=== PATIENT | female | born 1955 | race Caucasian/White ===

== ENCOUNTER 2021-03-06 14:26 | Inpatient (IN) ==
[2021-03-06] MEDS ORDERED: VANCOMYCIN/WATER FOR INJ (PEG) 1 GM/200 ML BAG IV ONE (15:31)
[2021-03-06] MEDS ORDERED: cefTRIAXone SODIUM 1,000 MG/100 ML BAG IV ONE (15:32)
--- NOTE | 2021-03-06 15:33 | ERNOTE ---
Lower Extremity HPI - Narrative Date of Service: 03/06/21 - General Lower Extremities Pain: heel: right Time Seen by Provider: 03/06/21 14:45 Source: patient Exam Limitations: no limitations - Immun/Allergies/Home Medications Immunizations: IMMUNIZATION HX Immunizations Up to Date Yes History of Influenza Vaccine No Hx Pneumococcal Vaccination No Allergies/Adverse Reactions: Allergies Allergy/AdvReac Type Severity Reaction Status Date / Time Penicillins Allergy Hives Verified 03/06/21 14:52 Home Medications: HOME MEDICATIONS Insulin Glargine,Hum.rec.anlog [Lantus Solostar] 20 unit SQ DAILY #1 insuln.pen 11/04/20 [Last Taken Unknown] Methimazole [Tapazole] 20 mg PO DAILY #30 tab 11/04/20 [Last Taken Unknown] Propranolol HCl [Inderal LA] 80 mg PO DAILY #30 capsule.sa 11/04/20 [Last Taken Unknown] Warfarin Sodium [Coumadin] 2.5 mg PO DAILY@1700 #30 tab 11/04/20 [Last Taken Unknown] glyBURIDE [Micronase] 2.5 mg PO DAILY #30 11/04/20 [Last Taken Unknown] metFORMIN HCL [Metformin HCl ER] 750 mg PO BID #60 11/04/20 [Last Taken Unknown] Furosemide [Lasix] 40 mg PO BID 03/06/21 [Last Taken Unknown] - History of Present Illness Narrative: Patient is a 66-year-old female known history of insulin-dependent diabetes with complaint of right lower extremity and right heel weeping and ulceration. Patient denies fever or chills. Patient states she has been treating it at home for the last 2 to 3 weeks. Patient complains of pain to the right heel. Patient also complains of weeping lesions to the right leg. Patient has history of insulin-dependent diabetes, atrial fibrillation, and hyperthyroidism. Occurred: other - 3 weeks Method of Injury: Reports: no apparent injury Loss of Consciousness: Reports: no loss of consciousness Modifying Factors - (Improves): Reports: immobilization Modifying Factors - (Worsens): Reports: movement Associated Symptoms: Reports: unable to bear weight Review of Systems - Review of Systems Constitutional: Present: no symptoms reported EYE: Present: no symptoms reported ENT: Present: no symptoms reported Respiratory: Present: no symptoms reported Cardiology: Present: no symptoms reported Gastrointestinal/Abdominal: Present: no symptoms reported Genitourinary: Present: no symptoms reported Musculoskeletal: Present: joint pain Skin: Present: rash, lesions Neurological: Present: no symptoms reported Endocrine: Present: no symptoms reported Hematologic/Lymphatic: Present: no symptoms reported Psych: Present: no symptoms reported Medical History (Last Reviewed 03/06/21 @ 17:24 by Caity Massey MD) Arthritis Diabetes Surgical History: Surgical History (Last Reviewed 03/06/21 @ 17:24 by Caity Massey MD) History of wisdom tooth extraction Hx of section Hx of dilation and curettage Family History: Family History (Last Reviewed 03/06/21 @ 17:24 by Caity Massey MD) Mother Heart disease Father Cancer Prostate CA Other No pertinent family history in first degree relatives Social History: (Last Reviewed 03/06/21 @ 17:24 by Caity Massey MD) Social History: Marital status: Single household members: none current occupational status: employed current occupation: [employer] Highest level of school completed/degree received: Bachelor's degree Service: No Tobacco: Smoking Status: Former smoker Alcohol: alcohol intake: former Substance Use: substance use type: does not use Dietary Habits: caffeine: Yes Physical Exam - Physical Exam General Appearance: Present: wd/wn, alert, no apparent distress Head Exam: Present: normal inspection, no evidence of injury Eye Exam: Normal inspection: bilateral, PERRL: bilateral, EOMI: bilateral Ears, Nose, Throat: Present: normal ENT inspection Neck: Present: normal inspection Respiratory: Present: no respiratory distress, normal breath sounds Cardiovascular/Chest: Present: regular rate, rhythm, no murmur Gastrointestinal/Abdominal: Present: normal bowel sounds, nontender Back Exam: Present: normal inspection, normal range of motion Extremity Exam: Present: other - Marked edematous diffusely to both lower extremities. Foul odor noted from right foot. Patient has large eschar covering the heel of the right foot. Skin Exam: Present: skin rash - Diabetic ulcer changes as noted. Lymphatic Exam: Present: no adenopathy Progress - Results and Orders Patient's Lab Results:: I have reviewed the patient's lab results. - Vital Signs Patient's Vital Signs:: I have reviewed the patient's vital signs. Vital Signs: Vital Signs 03/06/21 14:48 Temperature 37.3 C Pulse Rate 103 H Respiratory Rate 16 Blood Pressure 149/73 O2 Sat by Pulse Oximetry 99 - X-Ray X-Ray #1 X-Ray: foot - Imaging interpreted by radiologist no evidence of osteomyelitis on plain films. - Progress/Reassessment Chief Complaint: Lower Extremity Pain/ Injury Progress:: Unchanged - Wound culture is obtained. Sterile saline dressing applied Plan - Plan Plan: Case is discussed with Dr. Mcclelland. Patient will be admitted and wound care consult obtained. Patient is placed on vancomycin and Rocephin for secondary changes of cellulitis and diabetic ulceration. BNP is also noted to be markedly elevated above 5000 and uncertain of what baseline is for this patient. No respiratory distress is appreciated. Departure Clinical Impression: Diabetic foot ulcer - Departure Disposition: Short Term Hospital Inpatient Condition: Stable Referrals: Israel Rowe DO [Primary Care Provider] -
[2021-03-06 15:57] LABS: Hematocrit 40.3 % (37.0-47.0); Hemoglobin 12.3 gm/dL (12.5-16.0); Mean Cell Volume 84.7 fl (78-100); Mean Corpuscular Hemoglobin 25.8 pg (27-31); Mean Corpuscular Hgb Conc 30.5 g/dl (32-36); Mean Platelet Volume 8.9 fl (8-12.5); Platelet Count 405 K/mm3 (150-450); Red Blood Count 4.76 M/mm3 (4.2-5.4); Red Cell Distribution Width 14.4 % (11.5-14.0); White Blood Count 19.3 K/mm3 (4.0-10.5)
[2021-03-06 16:03] LABS: Total Cells Counted 100
[2021-03-06 16:16] LABS: Albumin * 2.4 gm/dl (3.4-5.0); Anion Gap 10.1 mmol/L (6.8-13.8); BUN/Creatinine Ratio 28.2 (9.0-21.6); Bilirubin, Total 0.4 mg/dL (0.0-1.1); Ca. Corrected For Albumin 9.6 mg/dL (8.4-10.2); Calcium * 8.6 mg/dL (7.9-10.9); Carbon Dioxide 31.5 mmol/L (24-32.6); Potassium 4.6 mmol/L (3.4-4.6); Total Protein 7.8 gm/dL (6.2-8.2)
[2021-03-06 16:54] LABS: Band 1 % (0-2.0); Basophil 1 % (0-1); Eosinophil 4 % (0-3); Lymphocyte 18 % (20-51); Monocyte 3 % (0-9); Neutrophil 73 % (42-75); Neutrophil # 14.1 K/mm3 (1.3-6.0)
[2021-03-06 16:55] LABS: Anisocytosis Trace; Toxic Granulation 2+
--- NOTE | 2021-03-06 16:55 | HP ---
Chief Complaint - Chief Complaint Date of Service: 03/06/21 Time of Service: 15:45 Chief Complaint: Right foot wound History of Present Illness: 66-year-old female with a past medical history of uncontrolled diabetes mellitus, arthritis, hypertension, atrial fibrillation, hyperthyroidism, lower extremity edema presents from home with complaints of a wound on her right foot for the past 3 weeks. She states the wound has been progressively getting worse and is draining clear fluid. She had seen her PCP for the wound but was never placed on antibiotics. She complains of pain in her foot. She states that her blood sugars run in the 200s. She is not sure what her last hemoglobin A1c reading was. In the ER she is found to have mild tachycardia with a heart rate of 103, labs showed a white blood cell count of 19.3. She has been started on vancomycin and ceftriaxone in the ER. MRI of the lower extremity is pending. She is being admitted for evaluation and management of a right lower extremity diabetic ulcer. Medical History (Last Reviewed 03/06/21 @ 17:24 by Caity Massey MD) Arthritis Diabetes Surgical History: Surgical History (Last Reviewed 03/06/21 @ 17:24 by Caity Massey MD) History of wisdom tooth extraction Hx of section Hx of dilation and curettage Family History: Family History (Last Reviewed 03/06/21 @ 17:24 by Caity Massey MD) Mother Heart disease Father Cancer Prostate CA Other No pertinent family history in first degree relatives Social History: (Last Reviewed 03/06/21 @ 17:24 by Caity Massey MD) Social History: Marital status: Single household members: none current occupational status: employed current occupation: [employer] Highest level of school completed/degree received: Bachelor's degree Service: No Tobacco: Smoking Status: Former smoker Alcohol: alcohol intake: former Substance Use: substance use type: does not use Dietary Habits: caffeine: Yes Review Of Systems (GEN) - Review of Systems Generalized/Overall Review: Present: Chills. Absent: Fever Respiratory: Present: Cough. Absent: Shortness of Breath Cardiac: Absent: Chest Pain Abdominal: Absent: Abdominal Pain Musculoskeletal: Present: Joint Pain - Right foot wound and pain Misc: All systems neg except as marked Immunizations: IMMUNIZATION HX Immunizations Up to Date Yes History of Influenza Vaccine No Hx Pneumococcal Vaccination No Allergies/Adverse Reactions: Allergies Allergy/AdvReac Type Severity Reaction Status Date / Time Penicillins Allergy Hives Verified 03/06/21 14:52 Home Medications: HOME MEDICATIONS Insulin Glargine,Hum.rec.anlog [Lantus Solostar] 20 unit SQ DAILY #1 insuln.pen 11/04/20 [Last Taken Unknown] Methimazole [Tapazole] 20 mg PO DAILY #30 tab 11/04/20 [Last Taken Unknown] Propranolol HCl [Inderal LA] 80 mg PO DAILY #30 capsule.sa 11/04/20 [Last Taken Unknown] Warfarin Sodium [Coumadin] 2.5 mg PO DAILY@1700 #30 tab 11/04/20 [Last Taken Unknown] glyBURIDE [Micronase] 2.5 mg PO DAILY #30 11/04/20 [Last Taken Unknown] metFORMIN HCL [Metformin HCl ER] 750 mg PO BID #60 11/04/20 [Last Taken Unknown] Furosemide [Lasix] 40 mg PO BID 03/06/21 [Last Taken Unknown] Exam - Exam Vital Signs: Vital Signs - Last Taken Temp 37.3 C 03/06/21 14:48 Pulse 103 H 03/06/21 14:48 Resp 16 03/06/21 14:48 BP 149/73 03/06/21 14:48 Pulse Ox 99 03/06/21 14:48 Constitutional: Present: Alert, Cooperative, Well developed, Well nourished, No distress, Elderly ENT Exam: Present: hearing grossly normal, moist mucous membranes Eye Exam: bilateral eye: normal inspection, PERRL, EOMI Neck: Present: supple. Absent: lymphadenopathy (R), lymphadenopathy (L) Back Exam: Present: normal inspection, no CVA tenderness, no vertebral tenderness Respiratory: Present: lungs clear, no respiratory distress, no accessory muscle use, No wheezing. Absent: crackles, rhonchi Cardiovascular/Chest: Present: normal peripheral pulses, no murmur, irregularly irregular, edema - Bilateral lower extremities Peripheral Pulses: dorsalis-pedis (R): 1+, dorsalis-pedis (L): 1+ Abdomen: Present: Normal bowel sounds, soft, nontender Extremity: Present: non-tender, pedal edema - Bilateral Skin Exam: Present: other - Right foot, plantar aspect: Large necrotic, foul- smelling wound from her heel to midfoot. Unstageable Multiple ulcerations on her bilateral anterior legs. Neurologic: Present: alert, normal mood/affect Appearance: Present: appropriate appearance, appropriate insight Eye contact: Present: cooperative Thoughts: Present: normal thought pattern, normal mood /affect Diagnostic Studies: Abnormal Lab Results 03/06/21 03/06/21 Range/Units 15:45 15:45 WBC 19.3 H (4.0-10.5) K/mm3 Hgb 12.3 L (12.5-16.0) gm/dL MCH 25.8 L (27-31) pg MCHC 30.5 L (32-36) g/dl RDW 14.4 H (11.5-14.0) % Chloride 96 L (97-106) mmol/L BUN 29 H (3-23) mg/dL Est GFR (Non-Af Amer) 57 L (60-130) mL/min BUN/Creatinine Ratio 28.2 H (9.0-21.6) Random Glucose 235 H (70-110) mg/dL ALT 14 L (19-67) U/L Alkaline Phosphatase 206 H (50-170) U/L B-Natriuretic Peptide 5725 H (5-325) pg/mL Albumin 2.4 L (3.4-5.0) gm/dl Laboratory Results WBC 19.3 K/mm3 (4.0-10.5) H 03/06/21 15:45 RBC 4.76 M/mm3 (4.2-5.4) 03/06/21 15:45 Hgb 12.3 gm/dL (12.5-16.0) L 03/06/21 15:45 Hct 40.3 % (37.0-47.0) 03/06/21 15:45 MCV 84.7 fl (78-100) 03/06/21 15:45 MCH 25.8 pg (27-31) L 03/06/21 15:45 MCHC 30.5 g/dl (32-36) L 03/06/21 15:45 RDW 14.4 % (11.5-14.0) H 03/06/21 15:45 Plt Count 405 K/mm3 (150-450) 03/06/21 15:45 MPV 8.9 fl (8-12.5) 03/06/21 15:45 Sodium 133 mmol/L (132-142) 03/06/21 15:45 Plasma Sodium 135 mmol/L (130-142) 03/06/21 15:45 Potassium 4.6 mmol/L (3.4-4.6) 03/06/21 15:45 Chloride 96 mmol/L (97-106) L 03/06/21 15:45 Carbon Dioxide 31.5 mmol/L (24-32.6) 03/06/21 15:45 Anion Gap 10.1 mmol/L (6.8-13.8) 03/06/21 15:45 BUN 29 mg/dL (3-23) H 03/06/21 15:45 Creatinine 1.03 mg/dL (0.4-1.4) 03/06/21 15:45 Est GFR (Non-Af Amer) 57 mL/min (60-130) L 03/06/21 15:45 BUN/Creatinine Ratio 28.2 (9.0-21.6) H 03/06/21 15:45 Random Glucose 235 mg/dL (70-110) H 03/06/21 15:45 Calcium 8.6 mg/dL (7.9-10.9) 03/06/21 15:45 Calcium Adj for Albumin 9.6 mg/dL (8.4-10.2) 03/06/21 15:45 Total Bilirubin 0.4 mg/dL (0.0-1.1) 03/06/21 15:45 AST 13 U/L (0-48) 03/06/21 15:45 ALT 14 U/L (19-67) L 03/06/21 15:45 Alkaline Phosphatase 206 U/L (50-170) H 03/06/21 15:45 B-Natriuretic Peptide 5725 pg/mL (5-325) H 03/06/21 15:45 Total Protein 7.8 gm/dL (6.2-8.2) 03/06/21 15:45 Albumin 2.4 gm/dl (3.4-5.0) L 03/06/21 15:45 Assessment/Plan - Narrative Narrative: 66-year-old female with a past medical history of uncontrolled diabetes mellitus, arthritis, hypertension, atrial fibrillation, hyperthyroidism, lower extremity edema presents from home with complaints of a wound on her right foot for the past 3 weeks. She states the wound has been progressively getting worse and is draining clear fluid. She had seen her PCP for the wound but was never placed on antibiotics. She complains of pain in her foot. She states that her blood sugars run in the 200s. She is not sure her last hemoglobin A1c. In the ER she is found to have mild tachycardia with a heart rate of 103, labs showed a white blood cell count of 19.3. She has been started on vancomycin and ceftriaxone in the ER. MRI of the lower extremity is pending. She is being admitted for evaluation and management of a right lower extremity diabetic ulcer. Plan #1 continue vancomycin and ceftriaxone day 1 #2 wound care consult #3 resume home medications for comorbidities #4 CBC and CMP in the morning - Assessment/Plan (1) Diabetic foot ulcer Problem: Acute (2) Leukocytosis Problem: Acute (3) Uncontrolled diabetes mellitus Problem: Acute Qualifiers: (4) Hyperthyroidism Problem: Acute (5) HTN (hypertension) Problem: Acute
[2021-03-06 16:56] LABS: Platelet Estimate Increased (NORMAL)
[2021-03-06] MEDS ORDERED: oxyCODONE HCL 5 MG TABLET PO PRN (20:16)
[2021-03-06] MEDS ORDERED: FUROSEMIDE 40 MG TABLET PO SCH (21:00)
[2021-03-06] MEDS ORDERED: metFORMIN HCL 750 MG TAB.SR.24H PO SCH (21:00)
[2021-03-06 21:30] VITALS: BP 137/76
[2021-03-07] MEDS ORDERED: METHIMAZOLE 10 MG TABLET PO SCH (09:00)
[2021-03-07] MEDS ORDERED: PROPRANOLOL HCL 80 MG CAPSULE.SA PO SCH (09:00)
[2021-03-07] MEDS ORDERED: INSULIN GLARGINE,HUM.REC.ANLOG 100 UNITS/ML VIAL SC SCH (09:00)
[2021-03-07] MEDS ORDERED: WARFARIN SODIUM 2.5 MG TABLET PO SCH (17:00)
== END 2021-03-06 23:59 | disposition still patient (30) | DRG 638 ==
LOC: ER 14:26 → MS 18:21
PROVIDERS: ADMIT Internal Medicine; ATTEND Internal Medicine